=== PATIENT | female | born 1975 | race Two or more races ===

== ENCOUNTER 2019-11-16 10:21 | Outpatient (CLI) | payer OTHER ==
[2019-11-16 10:55] LABS: BASOPHILS # (AUTO) 0.1 10^3/uL (0.0-0.1); EOSINOPHILS # (AUTO) 0.1 10^3/uL (0.0-0.7); EOSINOPHILS % (AUTO) 1.9 %; HGB - HEMOGLOBIN 12.8 g/dL (12.0-16.0); LYMPHOCYTES # (AUTO) 2.1 10^3/uL (1.5-3.5); LYMPHOCYTES % (AUTO) 29.3 %; MEAN CORPUSCULAR HEMOGLOBIN 30.7 pg (27.0-31.0); MEAN CORPUSCULAR HGB CONC 32.7 g/dL (32.0-36.0); MEAN CORPUSCULAR VOLUME 93.8 fL (81.0-99.0); MEAN PLATELET VOLUME 9.2 fL (7.9-10.8); MONOCYTES # (AUTO) 0.7 10^3/uL (0.0-1.0); NEUTROPHILS # (AUTO) 4.2 10^3/uL (1.5-6.6); NEUTROPHILS % (AUTO) 58.4 %; PLT - PLATELET COUNT 320 10^3/uL (130-450); RED BLOOD COUNT 4.17 10^6/uL (4.20-5.40); RED CELL DISTRIBUTION WIDTH 13.4 % (12.0-15.0); WHITE BLOOD COUNT 7.3 x10^3/uL (4.8-10.8)
== END 2019-11-16 10:22 | disposition home or self-care (01) ==
LOC: LAB 10:21
PROVIDERS: ATTEND Obstetrics & Gynecology
DX: Z01.818 Encounter for other preprocedural examination (principal); N83.201 Unspecified ovarian cyst, right side
CPT/HCPCS: 36415; 85025; 86850; 86900; 86901

== ENCOUNTER 2019-11-18 11:51 | Day surgery (SDC) | payer OTHER ==
[2019-11-18 11:45] LABS: HCG UR QUAL NEGATIVE
[~2019-11-18 11:51] MED LIST: BUPIVACAINE 0.25% PF 30 ML VIAL ONE
[2019-11-18] MEDS ORDERED: LIDOCAINE-MPF 2% 5 ML VIAL IM ONE (11:52)
[2019-11-18] MEDS ORDERED: DEXAMETHASONE 4 MG/ML VIAL IVP ONE (11:52)
[2019-11-18] MEDS ORDERED: ROCURONIUM 50 MG/5 ML VIAL IVP ONE (11:52)
[2019-11-18] MEDS ORDERED: PROPOFOL 200 MG/20 ML VIAL IVP ONE (11:52)
[2019-11-18] MEDS ORDERED: fentaNYL 100 MCG/2 ML VIAL IVP ONE (11:52)
[2019-11-18] MEDS ORDERED: ONDANSETRON 4 MG/2 ML VIAL IVP ONE (11:52)
[2019-11-18] MEDS ORDERED: LACTATED RINGERS 1,000 ML IV ONE (11:54)
--- NOTE | 2019-11-18 12:48 | ANESTHESIA ---
Pre-Anesthesia VS, & Labs - Diagnosis right ovarian cyst - Procedure right laparoscopic oopherectomy Vital Signs: Temp Pulse Resp BP Pulse Ox 36.5 C 80 16 172/105 H 100 11/18/19 11:32 11/18/19 11:32 11/18/19 11:32 11/18/19 11:32 11/18/19 11:32 Height 5 ft 6.93 in Weight (kg) 80.5 kg - NPO >8 hours - Is Patient ?: No Home Medications and Allergies Home Medications: Ambulatory Orders Dextroamphetamine/Amphetamine [Adderall 10 mg Tablet] 10 mg PO 11/12/19 Lisinopril [Zestril] 40 mg PO 11/12/19 hydroCHLOROthiazide [Hydrochlorothiazide] 25 mg PO 11/12/19 Dextroamphetamine/Amphetamine [Adderall 10 mg Tablet] 10 mg PO 11/12/19 Lisinopril [Zestril] 40 mg PO 11/12/19 hydroCHLOROthiazide [Hydrochlorothiazide] 25 mg PO 11/12/19 Allergies/Adverse Reactions: Allergies Allergy/AdvReac Type Severity Reaction Status Date / Time methocarbamol [From Robaxin] Allergy Severe Unknown Verified 11/12/19 11:54 garlic Allergy Mild Cramps Verified 11/18/19 12:02 acetaminophen Allergy Nausea Verified 11/12/19 11:54 [From Darvocet-N] fexofenadine [From Justyna] Allergy Nausea Verified 11/12/19 11:54 onion Allergy Cramps Verified 11/18/19 12:02 propoxyphene Allergy Nausea Verified 11/12/19 11:54 [From Darvocet-N] codeine AdvReac Nausea Verified 11/12/19 11:55 Anes History & Medical History - Anesthetic History Anesthesia Complications: reports: No previous complications - Medical History Cardiovascular: reports: Hypertension, Murmur (06/21, patient states had echo in past,some mitral regurg, no treatment. also had negative stress test at that time (about 20 yrs ago)) Pulmonary: reports: Sleep apnea Urinary: reports: Other Musculoskeletal: reports: None Endocrine/Autoimmune: reports: None Skin: reports: None Smoking Status: Never smoker - Surgical History Gynecologic: Dilation and currettage Exam General: Alert Dental: WNL Mouth Opening: Greater than 4 Fingerbreadths Neck Mobility: Normal Mallampati classification: II Thyromental Distance: greater than 6 cm Respiratory: Lungs clear Cardiovascular: Regular rate, Normal S1, Normal S2 Plan Anesthesia Type: General Consent for Procedure(s) Verified and Reviewed: Yes Code Status: Attempt Resuscitation ASA classification: 2-Mild systemic disease Is this case an emergency?: No
[2019-11-18] MEDS ORDERED: SCOPOLAMINE PATCH TOP ONE (13:03)
[2019-11-18] MEDS ORDERED: BUPIVACAINE 0.25% PF 30 ML VIAL SUBQ ONE ×2 (16:31)
[2019-11-18] MEDS ORDERED: SUGAMMADEX 200 MG/2 ML VIAL IVP ONE (17:06)
[2019-11-18] MEDS ORDERED: SILVER NITRATE APPLICATOR TOP ONE (17:07)
[2019-11-18] MEDS ORDERED: HYDROmorphone 0.5 MG/0.5 ML SYRINGE IVP PRN (17:16)
[2019-11-18] MEDS ORDERED: oxyCODONE 5 MG TABLET PO PRN (17:16)
[2019-11-18] MEDS ORDERED: ONDANSETRON 4 MG/2 ML VIAL IVP PRN (17:16)
--- NOTE | 2019-11-18 17:22 | OPERATIVE REPORT ---
Operative Report - General Procedure Date: 11/18/19 Planned Procedure: laparoscopic right oohorectomy or ovarian cystectomy Pre-Op Diagnosis: right ovarian endometrioma Procedure Performed: diagnostic laparoscopy Post Op Diagnosis: right ovarian cyst, densely adhered to right pelvic sidewall - Procedure Note Primary Surgeon: Kina Dennis Secondary Surgeon: Carlos Mittal Anesthesia Provider: Tri Zhang Anesthesia Technique: General ET tube Pathology: none IV Fluids (mL): 750 Estimated Blood Loss (mL): 5 Urine Output (mL): 200 Indications: right ovarian cyst, suspected endometrioma, and pelvic pain Findings: Normal liver edge, stomach, and grossly normal bowel. Simple appearing cyst on left ovary. Normal anteverted uterus and bilateral fallopian tubes. Small red- purple vesicles on left posterior uterine wall. Right ovary with solid white cyst extending medially off ovary. Ovary and cyst densely adhered to right pelvic sidewall immediately overlying the external iliac vessel. Complications: Cystectomy abandoned d/t adhesive disease - Other Other Information/Narrative: After informed consent was assured, the patient was taken to the operating room where anesthesia was induced. Patient was placed in low dorsal lithotomy. An exam under anesthesia revealed a small anteverted uterus. The patient was prepped and draped in the usual sterile fashion. A surgical timeout was performed. A speculum was inserted into the vagina, and the posterior lip of the cervix was grasped with a single tooth tenaculum. The Humi manipulator was inserted through the cervix to the fundus and the balloon was inflated with 10 mL of air. 0.25% marcaine plain was injected at the site of the incision. An incision was made at the umbilicus and the fascia and peritoneum were entered under direct visualization with the laparoscope. The abdomen was insufflated. Inspection of the bowel immediately under the entry site revealed no injury to the viscera. Marcaine was then injected on the right lateral side 2 cm superior and medial to the anterior superior iliac spine. An incision was made and a 5 mm port was placed through the incision under visualization with the laparoscope. A third 5 mm port was placed in a similar fashion on the left. Survey of the abdomen and pelvis revealed a normal liver edge and gallbladder. Red-purple vesicles consistent with endometriotic lesions noted on the posterior surface of the uterus. A simple cyst was noted on the left ovary. A solid white cyst was noted extending off the right ovary which was densely adhered to the right pelvic sidewall and immediately overlying the external iliac artery. The trochars were removed from the abdomen. Port sites were closed with 4-0 monocryl, and Dermabond skin adhesive used to cover the lateral port sites. The manipulator was removed from the uterus. All counts were correct. The pt was awoken and taken to PACU in stable condition.
[2019-11-18 17:48] VITALS: BP 144/92
== END 2019-11-18 11:52 | disposition home or self-care (01) ==
LOC: SDS 11:51
PROVIDERS: ATTEND Obstetrics & Gynecology
DX: N83.201 Unspecified ovarian cyst, right side (principal); N83.292 Other ovarian cyst, left side
CPT/HCPCS: 81025

== ENCOUNTER 2019-12-13 10:53 | Emergency (ER) | payer OTHER ==
[2019-12-13 11:24] LABS: BASOPHILS % (AUTO) 0.6 %; EOSINOPHILS # (AUTO) 0.2 10^3/uL (0.0-0.7); EOSINOPHILS % (AUTO) 2.6 %; HGB - HEMOGLOBIN 13.3 g/dL (12.0-16.0); LYMPHOCYTES # (AUTO) 2.9 10^3/uL (1.5-3.5); LYMPHOCYTES % (AUTO) 39.3 %; MEAN CORPUSCULAR HEMOGLOBIN 30.2 pg (27.0-31.0); MEAN CORPUSCULAR HGB CONC 33.2 g/dL (32.0-36.0); MEAN CORPUSCULAR VOLUME 91.1 fL (81.0-99.0); MEAN PLATELET VOLUME 9.4 fL (7.9-10.8); MONOCYTES # (AUTO) 0.5 10^3/uL (0.0-1.0); MONOCYTES % (AUTO) 6.7 %; NEUTROPHILS # (AUTO) 3.7 10^3/uL (1.5-6.6); NEUTROPHILS % (AUTO) 50.4 %; PLT - PLATELET COUNT 354 10^3/uL (130-450); RED CELL DISTRIBUTION WIDTH 13.2 % (12.0-15.0); WHITE BLOOD COUNT 7.3 x10^3/uL (4.8-10.8)
--- NOTE | 2019-12-13 11:27 | ED Physician Documentation ---
History of Present Illness - Stated complaint Stated Complaint: DIZZY - Chief complaint Chief Complaint: General - History obtained from History obtained from: Patient - Additonal information Additional information: She had an attempted ovarian cystectomy on fourth of this month which was abandoned due to dense adhesions to the pelvic sidewall. She has been bleeding ever since but has been especially heavy over the last 5 days with large volume clots this morning. She has had some on and off pain but nothing severe. She does have a history of heavy menses. Review of Systems Ten Systems: 10 systems reviewed and negative Constitutional: reports: Fatigue. denies: Fever, Chills GI: denies: Nausea, Vomiting, Diarrhea PD PAST MEDICAL HISTORY - Past Medical History Cardiovascular: Hypertension, Murmur (06/21, patient states had echo in past,some mitral regurg, no treatment. also had negative stress test at that time (about 20 yrs ago)) - Past Surgical History Cardiovascular: Other - Present Medications Home Medications: Ambulatory Orders Medication Instructions Recorded Confirmed Dextroamphetamine/Amphetamine 10 mg PO 11/12/19 [Adderall 10 mg Tablet] Lisinopril [Zestril] 40 mg PO 11/12/19 hydroCHLOROthiazide 25 mg PO 11/12/19 [Hydrochlorothiazide] Norgestimate-Ethinyl Estradiol 1 each PO TID #1 packet 12/13/19 [Ortho Tri-Cyclen 28 Tablet] - Allergies Allergies/Adverse Reactions: Allergies Allergy/AdvReac Type Severity Reaction Status Date / Time methocarbamol [From Robaxin] Allergy Severe Unknown Verified 11/12/19 11:54 garlic Allergy Mild Cramps Verified 11/18/19 12:02 acetaminophen Allergy Nausea Verified 11/12/19 11:54 [From Darvocet-N] fexofenadine [From Justyna] Allergy Nausea Verified 11/12/19 11:54 onion Allergy Cramps Verified 11/18/19 12:02 propoxyphene Allergy Nausea Verified 11/12/19 11:54 [From Darvocet-N] codeine AdvReac Nausea Verified 11/12/19 11:55 - Social History Smoking Status: Never smoker PD ED PE NORMAL - Vitals Vital signs reviewed: Yes - General General: Alert and oriented X 3, No acute distress - HEENT HEENT: PERRL, EOMI - Extremities Extremities: No edema, No calf tenderness / cord - Neuro Neuro: Alert and oriented X 3, Normal speech - Psych Psych: Normal mood, Normal affect Results - Vitals Vitals: Vital Signs - 24 hr 12/13/19 12/13/19 10:56 11:30 Temperature 36.6 C 37 C Heart Rate 72 69 Respiratory 20 17 Rate Blood Pressure 153/115 H 158/99 H O2 Saturation 100 99 Oxygen O2 Source Room air - EKG (time done) 1109 Rate: Rate (enter#) (67) Rhythm: NSR Cantril: Normal Intervals: Normal VA QRS: Normal Ischemia: Normal ST segments Computer interpretation: Agree with computer - Labs Labs: Laboratory Tests 12/13/19 12/13/19 12/13/19 11:15 11:15 11:15 WBC 7.3 RBC 4.40 Hgb 13.3 Hct 40.1 MCV 91.1 MCH 30.2 MCHC 33.2 RDW 13.2 Plt Count 354 MPV 9.4 Neut # (Auto) 3.7 Lymph # (Auto) 2.9 Maries # (Auto) 0.5 Eos # (Auto) 0.2 Baso # (Auto) 0.0 Absolute Nucleated RBC 0.00 Nucleated RBC % 0.0 Sodium 136 Potassium 3.6 Chloride 102 Carbon Dioxide 25 Anion Gap 9.0 BUN 11 Creatinine 0.8 Estimated GFR (MDRD) 78 L Glucose 110 H Calcium 9.1 Total Bilirubin 0.6 AST 21 ALT 23 Alkaline Phosphatase 68 Total Protein 7.6 Albumin 4.5 Globulin 3.1 Albumin/Globulin Ratio 1.5 Lipase 34 Serum HCG, Qual Blood Type B POSITIVE Antibody Screen NEGATIVE 12/13/19 11:15 WBC RBC Hgb Hct MCV MCH MCHC RDW Plt Count MPV Neut # (Auto) Lymph # (Auto) Maries # (Auto) Eos # (Auto) Baso # (Auto) Absolute Nucleated RBC Nucleated RBC % Sodium Potassium Chloride Carbon Dioxide Anion Gap BUN Creatinine Estimated GFR (MDRD) Glucose Calcium Total Bilirubin AST ALT Alkaline Phosphatase Total Protein Albumin Globulin Albumin/Globulin Ratio Lipase Serum HCG, Qual NEGATIVE Blood Type Antibody Screen PD MEDICAL DECISION MAKING - ED course ED course: 44-year-old woman with ongoing bleeding since an ovarian cystectomy less than a month ago which was terminated and now with heavy bleeding over the last few days. H&H is good. Not . Case discussed by phone with on-call gynecology, Dr. Mortensen who recommends 3 times daily control pending follow- up. Departure - Departure Disposition: 01 Home, Self Care Clinical Impression: DUB (dysfunctional uterine bleeding) Condition: Good Record reviewed to determine appropriate education?: Yes Instructions: ED Bleed Irregular Vaginal Prescriptions: Norgestimate-Ethinyl Estradiol [Ortho Tri-Cyclen 28 Tablet] 1 each PO TID #1 packet Comments: Your blood counts today are excellent despite the bleeding, your hemoglobin was 13.3 and hematocrit 40.4. You are not . I discussed the case by phone with my on-call calibration specialist who recommended control until [place] for an appointment.
[2019-12-13 11:39] LABS: ALBUMIN 4.5 g/dL (3.2-5.5); ALBUMIN/GLOBULIN RATIO 1.5 (1.0-2.2); BILIRUBIN,TOTAL 0.6 mg/dL (0.2-1.0); CALCIUM 9.1 mg/dL (8.5-10.3); CREATININE 0.8 mg/dL (0.4-1.0); TOTAL PROTEIN 7.6 g/dL (6.7-8.2)
[2019-12-13 11:52] LABS: HCG,QUALITATIVE BLOOD NEGATIVE
[2019-12-13 12:36] VITALS: BP 154/102
== END 2019-12-13 12:36 | disposition home or self-care (01) ==
LOC: ED 10:53
DX: N93.8 Other specified abnormal uterine and vaginal bleeding (principal); I10 Essential (primary) hypertension
CPT/HCPCS: 36415; 80053; 83690; 84703; 85025; 86850; 86900; 86901; 93005; 99284

== ENCOUNTER 2019-12-28 09:21 | Outpatient (CLI) | payer OTHER ==
--- NOTE | 2019-12-28 09:54 | SLEEP CARE CONSULTATION ---
Information from patient questionnaire entered by Sandie Perez. I have reviewed and concur with the information entered by Sandie Perez. This document represents the service I personally performed and the decisions made by me, Angela Lujan MD, [facility]. History of Present Illness Service Date and Time: 12/28/2019920 Reason for Visit: New patient Chief Complaint: reports: Insomnia, Unrefreshed sleep, Observed pauses in breathing, Frequent awakenings at night Duration of Symptoms: years Usual bedtime: 2300 Time it takes to fall asleep: 1-2 hours Snores at night: Yes (I think so) Observed to quit breathing while asleep: Yes Sleeps alone due to snoring: No Number of times waking at night: 3+ Reasons for waking at night: reports: Gasping for air, Bathroom, Other (noises) Toss, Turn, or Twitch while sleeping: Yes Recalls having dreams: Yes (sometimes (rare)) Usually gets out of bed at: 0730 Feels refreshed in the morning: No Morning headache: Yes Sleepy or fatigued during the day: Yes (sometimes) Ever fallen asleep while driving: No Takes day naps: No Dreams during day naps: No Prior sleep studies: Yes (can't remember) Year and Where: [facility] in [place] in early , maybe one was late Additional HPI information: I had the pleasure of seeing Ms. Duncan today regarding the possibility of her having a sleep disorder. As you know, she is a 44 year old lady who complains of insomnia, unrefreshed sleep, loud snore, observed apneas, and fatigue. She had two sleep studies almost 20 years ago that showed mild obstructive sleep apnea-hypopnea. She recalls the AHI to be 9. She was not offered treatment even though she was symptomatic for nocturnal choking. Since the she gained 50 lbs. She now complains of loud snore, frequent awakenings, nocturnal choking, unrefreshed sleep, morning headache, cognitive impairment, and persistent fatigue. Her also sees her quit breathing at night. 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 Patient is and lives in [place]. Have you smoked in the past 12 months: No Cigarettes per day (20/pack): 20 Years of smokin Quit date: 1994 Smoking Pack Years: 1.0 Alcohol use: Yes Alcohol amount and frequency: 1-2, 1-2x per week Caffeine use: Yes Caffeine amount and frequency: sometimes 0, 3-4x/week max Allergies and Home Medications Drug allergies reviewed: Yes Home medication list reviewed: Yes (Ritalin, HCTZ, lisinopril, and progesterone) Review of Systems Weight gain over past 5 years: 30 Weight loss over past 5 years: 30 Cardiovascular: reports: high blood pressure, other (valve leak (minor)) Respiratory: reports: shortness of breath Gastrointestinal: reports: diarrhea, other (IBS) Urinary: reports: frequency Neurological: reports: headaches, disorientation Psychiatric: reports: Attention Deficit Hyperactivity, anxiety, claustrophobia, other (inability to remember simple words/things) Ear/Nose/Throat: reports: sinus problems, wisdom teeth removed Endocrine: reports: too hot or cold Musculoskeletal: reports: back pain Immunologic: reports: sneezing, allergies to food or environment Physical Exam Vital signs obtained and entered by: Detailed physical exam was not performed to comply with the COVID-19 precau Height: 5 ft 5 in Weight: 180 lb Body Mass Index: 29.9 BMI Classification: Overweight Impression and Plan IMPRESSION: 1. Obstructive Sleep Apnea-Hypopnea Syndrome, as suggested by history of loud and irregular snoring, observed cessation of breath while asleep, frequent awakenings during the night, unrefreshed sleep, nocturnal choking, cognitive impairment, and persistent fatigue. Narrow oropharynx and obesity are common predisposing factors for obstructive sleep apnea-hypopnea syndrome. Untreated obstructive sleep apnea can also cause hypertension. Pathophysiology of sleep-disordered breathing was discussed. I recommend proceeding to polysomnography to confirm the diagnosis and to assess severity. If she has significant sleep disordered breathing, a manual CPAP titration study will also be performed to find the optimal treatment pressure. I informed the patient of what the sleep studies involve and after some discussion, she agreed to proceed. Plan: 1. Schedule an in-laboratory polysomnography. 2. Avoid long distance driving or when feeling sleepy. 3. Avoid alcohol, sedative and muscle relaxant around bedtime. 4. Attempt to lose weight. 5. Return in 1 to 2 weeks after the study to discuss results and initiate therapy Visit Type: In Office Time Spent with Patient (minutes): 15 Provider Statement: I spent 100% of the Face to Face Visit with the patient with greater than 50% spent counseling the patient and coordination of care.
== END 2019-12-28 09:22 | disposition home or self-care (01) ==
LOC: SC 09:21
PROVIDERS: ATTEND Internal Medicine Pulmonary Disease
DX: G47.33 Obstructive sleep apnea (adult) (pediatric) (principal); E66.3 Overweight; Z68.29 Body mass index [BMI] 29.0-29.9, adult; I10 Essential (primary) hypertension; R41.9 Unspecified symptoms and signs involving cognitive functions and awareness
CPT/HCPCS: 99203; 99212

== ENCOUNTER 2020-01-02 20:31 | Outpatient (CLI) | payer OTHER | END 2020-01-02 20:32 | disposition home or self-care (01) | LOC: SC 20:31 | PROVIDERS: ATTEND Internal Medicine Pulmonary Disease | DX: R06.83 Snoring (principal); G47.8 Other sleep disorders; R06.81 Apnea, not elsewhere classified; R53.83 Other fatigue; G47.00 Insomnia, unspecified | CPT/HCPCS: 95810 ==